=== PATIENT | male | born 1975 | race Caucasian/White ===

== ENCOUNTER 2021-03-04 10:00 | Outpatient (CLI) | payer BC | END 2021-03-04 10:01 | disposition home or self-care (01) | LOC: CSHCT 10:00 | PROVIDERS: ATTEND Family Medicine | DX: R19.03 Right lower quadrant abdominal swelling, mass and lump (principal); Z85.038 Personal history of other malignant neoplasm of large intestine; R59.0 Localized enlarged lymph nodes; Z90.49 Acquired absence of other specified parts of digestive tract | CPT/HCPCS: 71260; 74177 ==